=== PATIENT | male | born 1980 | race African-American/Black ===

== ENCOUNTER 2017-05-25 10:15 | Emergency (ER) | payer SELFPAY ==
[~2017-05-25] VITALS: Ht 190.5 cm; Wt 80.0 kg
[~2017-05-25 10:15] MED LIST: METH750T2 PO; MOBI15TA PO; MOTR200T PO
[2017-05-25 10:52] VITALS: BP 111/61; PULSE 64; RESP 16; TEMP 98.1; O2SAT 99
[2017-05-25] MEDS ORDERED: MULT1TAB46 PO (11:12)
--- NOTE | 2017-05-25 11:41 | PD ---
HPI Chief Complaint: GI Complaint Time Seen by Provider: 11:17 Travel History International Travel<30 days: No Contact w/Intl Traveler<30days: No Traveled to known affect area: No History of Present Illness HPI 37-year-old male in place of headache, neck pain, facial pressure, nasal congestion, productive cough, body ache. Patient states the symptoms started 2 weeks ago and got progressively worse since then. Patient has history reactive airway disease. Patient is a smoker. Patient complaining of wheezing also. Patient denies any chest pain. Patient states that he started having abdominal cramping with nausea vomiting today. Patient denies any dysuria or frequency. Patient states that the cough is persistent and productive. Patient states the headache started on the left side and moved to right side and mid to the back the head above the neck. Patient denies any visual change. Patient denies any stiff neck. PFSH Past Medical History Diminished Hearing: No Tetanus Vaccination: > 5 Years Influenza Vaccination: No Social History Alcohol Use: No Tobacco Use: Yes (1/2ppd) Substance Use: No Allergies-Medications (Allergen,Severity, Reaction): Coded Allergies: No Known Allergies (Verified Adverse Reaction, Unknown, 05/25/17) Reported Meds & Prescriptions Reported Meds & Active Scripts Active Reported Multi Vitamin Daily (Multiple Vitamin) 1 Tab Tab 1 Tab-Cap PO DAILY Review of Systems General / Constitutional: No: Fever Eyes: No: Visual changes HENT: Positive: Headaches, Congestion Cardiovascular: No: Chest Pain or Discomfort Respiratory: Positive: Cough, Wheezing, No: Shortness of Breath Gastrointestinal: No: Abdominal Pain Genitourinary: No: Dysuria Musculoskeletal: No: Pain Skin: No Rash Neurologic: No: Weakness Psychiatric: No: Depression Endocrine: No: Polydipsia Hematologic/Lymphatic: No: Easy Bruising Physical Exam Narrative GENERAL: Well-nourished, well-developed patient. SKIN: Focused skin assessment warm/dry. HEAD: Normocephalic. EYES: No scleral icterus. No injection or drainage. TM: Clear. Throat: Nonerythematous. NECK: Supple, trachea midline. No JVD or lymphadenopathy. No meningismus CARDIOVASCULAR: Regular rate and rhythm without murmurs, gallops, or rubs. RESPIRATORY: Breath sounds equal bilaterally. No accessory muscle use. Patient has mild to moderate expiratory wheezes bilaterally. Few rhonchi at the bases. GASTROINTESTINAL: Abdomen soft, non-tender, nondistended. MUSCULOSKELETAL: No cyanosis, or edema. BACK: Nontender without obvious deformity. No CVA tenderness. Neurologic exam normal. Data Data Last Documented VS Vital Signs Date Time Temp Pulse Resp B/P (MAP) Pulse Ox O2 Delivery O2 Flow Rate FiO2 05/25/17 10:52 98.1 64 16 111/61 (78) 99 Orders Orders Influenzae A/B Antigen (05/25/17 11:36) Chest, Single Ap (05/25/17 11:36) Albuterol-Ipratropium Neb (Duoneb Neb) (05/25/17 11:45) Dexamethasone Inj (Decadron Inj) (05/25/17 11:45) MDM Medical Decision Making Medical Screen Exam Complete: Yes Emergency Medical Condition: Yes Interpretation(s) Last Impressions Chest X-Ray 05/25/17 1136 Signed Impressions: Service Date/Time: Thursday, May 25, 2017 11:47 - CONCLUSION: 1. No acute cardiopulmonary disease. Anders Cody MD 12:27 PM. Patient's negative for influenza AB antigen. Differential Diagnosis Differential diagnosis including viral syndrome, sinusitis, bronchitis, pneumonia, reactive airway disease, gastroenteritis. Narrative Course 37-year-old male with coughing congestion wheezing shortness of breath, headache , body ache, nausea vomiting abdominal cramping. Albuterol with Atrovent unit dose treatment 2. Decadron 8 mg IM. Diagnosis Primary Impression: Bronchitis Additional Impressions: Sinusitis Qualified Codes: J01.00 - Acute maxillary sinusitis, unspecified Reactive airway disease Qualified Codes: J45.21 - Mild intermittent asthma with (acute) exacerbation Patient Instructions: General Instructions Additional Instructions: Take medications as directed. Use inhaler as directed. Tylenol for aching pain. Follow-up with personal physician. Return if worse. Med/Other Pt SpecificInfo: Prescription(s) given Scripts Prednisone (Prednisone) 20 Mg Tab 20 MG PO BID, #10 TAB 0 Refills Prov: Ki Vee MD 05/25/17 Albuterol 18 GM Inh (Ventolin Hfa 18 GM Inh) 90 Mcg/Act Aer 2 PUFF INH Q4-6H Y for SHORTNESS OF BREATH, #1 INHALER 0 Refills Prov: Ki Vee MD 05/25/17 Ondansetron Odt (Zofran Odt) 4 Mg Tab 4 MG SL Q6HR Y for Nausea/Vomiting, #30 TAB 0 Refills Prov: Ki Vee MD 05/25/17 [Phenergan W Codein] No Conflict Check 10 ML PO Q6HR for Cough, #120 Prov: Ki Vee MD 05/25/17 Azithromycin (Zithromax Z-Forrest) 250 Mg Dspk 250 MG PO DIRECTED for Infection, #1 DSPK 0 Refills 500 MG (2 tabs) day 1, then 1 tab days 2-5. Prov: Ki Vee MD 05/25/17 Disposition: 01 DISCHARGE HOME Condition: Stable Ki Vee MD May 25, 2017 11:41
[2017-05-25] MEDS ORDERED: DEXAMETHASONE SOD PHOS 4 MG/ML VIAL IM ONE (11:45)
[2017-05-25] MEDS: RESP: ALBUTEROL 2.5 MG/IPRATROPIUM 0.5 MG NEB (SCH) INH (11:52)
[2017-05-25 12:00] VITALS: BP 118/66; PULSE 82; RESP 18; O2SAT 97
--- NOTE | 2017-05-25 12:17 | RADRPT ---
EXAM DATE/TIME: 05/25/2017 11:47 [facility] COMPARISON: CHEST SINGLE AP, October 04, 2011, 20:21. INDICATIONS : Short of breath, chest pains with deep inspiration MEDICAL HISTORY : None. SURGICAL HISTORY : None. ENCOUNTER: Initial ACUITY: 1 week PAIN SCORE: 7/10 LOCATION: Bilateral chest FINDINGS: A single view of the chest demonstrates the lungs to be symmetrically aerated without evidence of mas s, infiltrate or effusion. The cardiomediastinal contours are unremarkable. Osseous structures are intact. CONCLUSION: 1. No acute cardiopulmonary disease. Anders Cody MD on May 25, 2017 at 12:15 Board Certified Radiologist. This report was verified electronically.
[2017-05-25] MEDS ORDERED: VENTAER INH (12:31)
[2017-05-25] MEDS ORDERED: ZOFR4TAB3 SL (12:31)
[2017-05-25] MEDS ORDERED: PHENERGAN W CODEIN PO (12:31)
[2017-05-25] MEDS ORDERED: PRED20 PO (12:31)
[2017-05-25] MEDS ORDERED: ZITHTAB PO (12:31)
[2017-05-25 13:18] VITALS: BP 129/62
== END 2017-05-25 13:20 | disposition home or self-care (01) ==
LOC: PHED 10:15
DX: J40 Bronchitis, not specified as acute or chronic (principal); J01.00 Acute maxillary sinusitis, unspecified; J45.21 Mild intermittent asthma with (acute) exacerbation; M54.2 Cervicalgia; M79.1 Myalgia; R10.9 Unspecified abdominal pain; R11.2 Nausea with vomiting, unspecified; F17.200 Nicotine dependence, unspecified, uncomplicated; Z87.09 Personal history of other diseases of the respiratory system
CPT/HCPCS: 71010; 87804; 94640; 94664; 96372; 99284; J1100